=== PATIENT | female | born 1995 | race Hispanic/Latino ===

== ENCOUNTER 2018-04-27 19:12 | Emergency (ER) | payer OTHER ==
[2018-04-27] MEDS ORDERED: SULFAMETHOX-TMP DS 800/160 TAB ONE (19:54)
[2018-04-27] MEDS ORDERED: DIPHENHYDRAMINE HCL 25 MG CAPSULE ONE (19:54)
== END 2018-04-27 20:03 | disposition home or self-care (01) ==
LOC: EDH 19:12
DX: S50.862A Insect bite (nonvenomous) of left forearm, initial encounter (principal); W57.XXXA Bitten or stung by nonvenomous insect and other nonvenomous arthropods, initial encounter; Y93.89 Activity, other specified; Y92.096 Garden or yard of other non-institutional residence as the place of occurrence of the external cause; Y99.8 Other external cause status
CPT/HCPCS: 99283; Q0163

== ENCOUNTER 2019-01-01 23:36 | Emergency (ER) | payer OTHER ==
[2019-01-02] MEDS ORDERED: TETANUS/DIPHTHERIA TOXOID [ADULT] 0.5 ML VIAL IM ONE (00:16)
[2019-01-02] MEDS ORDERED: LIDOCAINE HCL 1% 20 ML VIAL ONE (00:56)
== END 2019-01-02 01:21 | disposition home or self-care (01) ==
LOC: EDH 23:36
DX: S61.412A Laceration without foreign body of left hand, initial encounter (principal); W45.8XXA Other foreign body or object entering through skin, initial encounter; Y93.G3 Activity, cooking and baking; Y92.098 Other place in other non-institutional residence as the place of occurrence of the external cause; Y99.8 Other external cause status
CPT/HCPCS: 12041; 90471; 90714

== ENCOUNTER 2019-10-03 12:47 | Emergency (ER) | payer OTHER, SELFPAY ==
[2019-10-03] MEDS ORDERED: ACETAMINOPHEN EXTRA STRENGTH 500 MG TABLET ONE (14:19)
[2019-10-03] MEDS ORDERED: ONDANSETRON HCL 4 MG/2 ML VIAL ONE (14:19)
[2019-10-03] MEDS ORDERED: SODIUM CHLORIDE 0.9% 500ML 500 ML IV ONE (14:22)
[2019-10-03 14:48] LABS: BASOPHILS % (AUTO) 0.5 % (0.0-5.0); MEAN CORPUSCULAR HEMOGLOBIN 28.7 pg (27.0-33.0); MEAN CORPUSCULAR HGB CONC 33.2 g/dL (32.0-36.0); MEAN CORPUSCULAR VOLUME 86.4 fL (79-99); MONOCYTES % (AUTO) 4.4 % (3.0-13.0); NEUTROPHILS % (AUTO) 70.3 % (40.0-77.0); PLATELET COUNT (AUTO) 135 K/uL (130-400); RED BLOOD CELL COUNT(AUTO) 4.28 MIL/uL (4.00-5.50); RED CELL DISTRIBUTION WIDTH 12.2 % (11.0-15.5); WHITE BLOOD COUNT (AUTO) 3.9 K/uL (4.8-10.8)
[2019-10-03 14:56] LABS: APPEARANCE,URINE CLOUDY (CLEAR); BILIRUBIN,URINE SMALL (NEGATIVE); COLOR,URINE YELLOW (YELLOW); GLUCOSE, URINE (UA) NEGATIVE (NEGATIVE); KETONES,URINE 15 mg/dL (NEGATIVE); LEUKOCYTE ESTERASE ,URINE SMALL (NEGATIVE); NITRATE,URINE NEGATIVE (NEGATIVE); OCCULT BLOOD,URINE NEGATIVE (NEGATIVE); PROTEIN,URINE 30 mg/dL (NEGATIVE)
[2019-10-03 15:04] LABS: PARTIAL THROMBOPLASTIN TIME 28.5 SEC (26.3-35.5); PROTHROMBIN TIME 10.8 SEC (9.6-11.6)
[2019-10-03 15:06] LABS: CARBON DIOXIDE 26 mmol/L (21-32); CHLORIDE 96 mmol/L (101-111); CREATININE 0.8 mg/dL (0.5-1.5); GLOMERULAR FILTR. RATE CALC 92 mL/min (>60); GLUCOSE,RANDOM 108 mg/dL (70-105); POTASSIUM 3.4 mmol/L (3.5-5.1); SODIUM SERUM 133 mmol/L (136-145); UREA NITROGEN, BLOOD 10 mg/dL (7-18)
[2019-10-03 15:09] LABS: RBC,URINE 0-1 /HPF (0-1)
[2019-10-03 15:10] LABS: BACTERIA,URINE Few /HPF (None Seen); MUCUS,URINE Few LPF (None Seen); SQUAMOUS EPITHELIAL CELL,UR Moderate /HPF (0-2)
[2019-10-03 15:15] LABS: ALANINE AMINOTRANSFERASE 58 U/L (12-78); ALBUMIN 3.3 g/dL (3.5-5.0); ASPARTATE AMINOTRANSFERASE 53 U/L (10-37); BILIRUBIN,TOTAL 0.4 mg/dL (0.2-1.0); CREATINE KINASE, TOTAL 61 U/L (21-232); MYOGLOBIN 26 ng/mL (10-92); TOTAL PROTEIN, SERUM 7.9 g/dL (6.0-8.3); TROPONIN I < 0.04 ng/mL (0.00-0.06)
[2019-10-03] MEDS ORDERED: IOHEXOL-350 75 ML VIAL IV ONE (17:08)
== END 2019-10-03 17:59 | disposition home or self-care (01) ==
LOC: EDH 12:47
DX: U07.1 COVID-19 (principal); M79.605 Pain in left leg; M79.604 Pain in right leg
CPT/HCPCS: 36415; 71045; 71275; 80053; 81001; 81025; 82550; 82728; 83605; 83874; 84145; 84484; 85025; 85378; 85610; 85730; 86900; 86901; 87040 ×2; 87088; 93005; 93970; 96374; 99285; J2405; J7040; Q9967

== ENCOUNTER 2021-06-21 12:24 | Emergency (ER) | payer OTHER ==
[~2021-06-21] VITALS: Ht 165.1 cm; Wt 131.5 kg
[2021-06-21 12:50] LABS: BASOPHILS % (AUTO) 0.4 % (0.0-5.0); EOSINOPHILS % (AUTO) 0.8 % (0.0-8.0); HEMATOCRIT 40.6 % (36-48); MEAN CORPUSCULAR VOLUME 83.9 fL (79-99); MONOCYTES % (AUTO) 7.5 % (3.0-13.0); PLATELET COUNT (AUTO) 316 K/uL (130-400); RED BLOOD CELL COUNT(AUTO) 4.84 MIL/uL (4.00-5.50); RED CELL DISTRIBUTION WIDTH 13.2 % (11.0-15.5); WHITE BLOOD COUNT (AUTO) 7.3 K/uL (4.8-10.8)
[2021-06-21 12:57] LABS: CREATININE 0.8 mg/dL (0.5-1.5); POTASSIUM 3.7 mmol/L (3.5-5.1)
[2021-06-21 13:05] LABS: ALBUMIN 3.5 g/dL (3.5-5.0); BILIRUBIN,TOTAL 0.1 mg/dL (0.2-1.0)
[2021-06-21] MEDS ORDERED: 0.9%NACL 1000ML 1,000 ML IV ONE ×2 (13:07→13:30)
[2021-06-21] MEDS ORDERED: ONDANSETRON 4MG INJ ONE (13:08)
[2021-06-21] MEDS ORDERED: MORPHINE 2 MG SYG ONE (13:09)
[2021-06-21 13:28] LABS: APPEARANCE,URINE Clear (CLEAR); BILIRUBIN,URINE Negative (NEGATIVE); COLOR,URINE Yellow (YELLOW); GLUCOSE, URINE (UA) Negative (NEGATIVE); KETONES,URINE Trace mg/dL (NEGATIVE); LEUKOCYTE ESTERASE ,URINE Small (NEGATIVE); NITRATE,URINE Negative (NEGATIVE); OCCULT BLOOD,URINE Negative (NEGATIVE); PH,URINE 5.5 (5.0-8.0); PROTEIN,URINE Negative (NEGATIVE)
[2021-06-21] MEDS ORDERED: ONDANSETRON 4MG INJ IVP ONE (13:30)
[2021-06-21] MEDS ORDERED: MORPHINE 2 MG SYG IVP ONE (13:30)
[2021-06-21 14:01] LABS: BACTERIA,URINE Few /HPF (None Seen); MUCUS,URINE Few LPF (None Seen); YEAST,URINE BUDDING Few /HPF (None Seen)
[2021-06-21] MEDS ORDERED: CEFTRIAXONE 1G VIAL IV ONE (14:30)
[2021-06-21] MEDS ORDERED: CEPH500B PO (14:49)
[2021-06-21] MEDS ORDERED: ONDA4TAB10 PO (14:49)
[2021-06-21 15:02] VITALS: BP 123/78
== END 2021-06-21 15:02 | disposition home or self-care (01) ==
LOC: EDH 12:24
DX: N39.0 Urinary tract infection, site not specified (principal); Z20.822 Contact with and (suspected) exposure to COVID-19; Z79.899 Other long term (current) drug therapy
CPT/HCPCS: 36415; 74176; 80053; 81001; 81025; 85025; 87635; 87804 ×2; 87880; 96361; 96374; 96375; 99284; C9803; J0696; J2405; J7030

== ENCOUNTER 2022-02-24 20:23 | Emergency (ER) | payer OTHER ==
[~2022-02-24] VITALS: Ht 165.1 cm; Wt 132.9 kg
[~2022-02-24 20:23] MED LIST: CEPH500B PO; ONDA4TAB10 PO
[2022-02-24 21:44] VITALS: BP 126/73
[2022-02-24 23:22] LABS: BASOPHILS % (AUTO) 0.2 % (0.0-5.0); EOSINOPHILS % (AUTO) 0.7 % (0.0-8.0); HEMATOCRIT 33.6 % (36-48); LYMPHOCYTES % (AUTO) 21.4 % (21.0-51.0); MEAN CORPUSCULAR HEMOGLOBIN 27.9 pg (27.0-33.0); MEAN CORPUSCULAR HGB CONC 32.4 g/dL (32.0-36.0); MEAN CORPUSCULAR VOLUME 85.9 fL (79-99); MONOCYTES % (AUTO) 9.6 % (3.0-13.0); NEUTROPHILS % (AUTO) 67.9 % (40.0-77.0); PLATELET COUNT (AUTO) 289 K/uL (130-400); RED BLOOD CELL COUNT(AUTO) 3.91 MIL/uL (4.00-5.50); RED CELL DISTRIBUTION WIDTH 13.7 % (11.0-15.5); WHITE BLOOD COUNT (AUTO) 8.8 K/uL (4.8-10.8)
[2022-02-24 23:39] LABS: ALBUMIN 3.1 g/dL (3.5-5.0); POTASSIUM 3.6 mmol/L (3.5-5.1); TOTAL PROTEIN, SERUM 7.3 g/dL (6.0-8.3)
[2022-02-24 23:54] LABS: CREATININE 0.6 mg/dL (0.5-1.5)
[2022-02-25 01:02] LABS: APPEARANCE,URINE CLEAR (CLEAR); BILIRUBIN,URINE NEGATIVE (NEGATIVE); COLOR,URINE YELLOW (YELLOW); GLUCOSE, URINE (UA) NEGATIVE (NEGATIVE); KETONES,URINE NEGATIVE (NEGATIVE); LEUKOCYTE ESTERASE ,URINE 25 Leu/uL (NEGATIVE); NITRATE,URINE NEGATIVE (NEGATIVE); OCCULT BLOOD,URINE NEGATIVE (NEGATIVE); PROTEIN,URINE 10 mg/dL (NEGATIVE); UROBILINOGEN,URINE 3 mg/dL (0.2-1.0)
[2022-02-25 01:06] LABS: BACTERIA,URINE RARE /HPF (None Seen); MUCUS,URINE RARE LPF (None Seen); SQUAMOUS EPITHELIAL CELL,UR FEW /HPF (0-2)
[2022-02-25 01:07] LABS: HCG,QUALITATIVE URINE POSITIVE (NEGATIVE)
[2022-02-25] MEDS ORDERED: ONDANSETRON 4MG INJ IVP ONE (02:00)
[2022-02-25] MEDS ORDERED: PREN-155 PO (03:57)
[2022-02-25] MEDS ORDERED: ONDA4TAB10 PO (03:57)
== END 2022-02-25 04:00 | disposition home or self-care (01) ==
LOC: EDH 20:23
DX: O26.891 Other specified pregnancy related conditions, first trimester (principal); R10.13 Epigastric pain; O21.9 Vomiting of pregnancy, unspecified; R05.9 Cough, unspecified; R50.9 Fever, unspecified; Z20.822 Contact with and (suspected) exposure to COVID-19; Z3A.01 Less than 8 weeks gestation of pregnancy
CPT/HCPCS: 99284; 87635; 80053; 84702; 85025; 83690; 87804 ×2; 81001; 81025; 36415; 96374; 76817; C9803; J2405

== ENCOUNTER 2022-05-14 21:11 | Emergency (ER) | payer BC, MEDICAID ==
[~2022-05-14] VITALS: Ht 165.1 cm; Wt 131.5 kg
[~2022-05-14 21:11] MED LIST changes: +PREN-155 PO
[2022-05-14 23:44] VITALS: BP 138/64
== END 2022-05-14 23:35 | disposition home or self-care (01) ==
LOC: EDH 21:11
DX: O26.892 Other specified pregnancy related conditions, second trimester (principal); S00.83XA Contusion of other part of head, initial encounter; R10.9 Unspecified abdominal pain; Z3A.19 19 weeks gestation of pregnancy; Z79.899 Other long term (current) drug therapy; Y04.2XXA Assault by strike against or bumped into by another person, initial encounter; Y93.89 Activity, other specified; Y92.89 Other specified places as the place of occurrence of the external cause; Y99.8 Other external cause status
CPT/HCPCS: 76805

== ENCOUNTER 2022-07-28 22:42 | Emergency (ER) | payer BC, MEDICAID ==
[~2022-07-28] VITALS: Ht 165.1 cm; Wt 135.2 kg
[2022-07-28 22:43] VITALS: BP 122/67
[2022-07-28] MEDS ORDERED: CEPH500B PO (23:14)
== END 2022-07-28 23:25 | disposition home or self-care (01) ==
LOC: EDH 22:42
DX: S61.111A Laceration without foreign body of right thumb with damage to nail, initial encounter (principal); Z79.899 Other long term (current) drug therapy; X58.XXXA Exposure to other specified factors, initial encounter; Y93.89 Activity, other specified; Y92.89 Other specified places as the place of occurrence of the external cause; Y99.8 Other external cause status

== ENCOUNTER 2022-09-19 23:57 | Observation (INO) | payer BC, MEDICAID ==
[~2022-09-19] VITALS: Ht 165.1 cm; Wt 143.8 kg
[2022-09-20] MEDS ORDERED: PREN-196 PO (00:21)
[2022-09-20] MEDS ORDERED: LACTATED RINGERS 1000ML 1,000 ML IV PRN (00:30)
[2022-09-20 00:40] LABS: APPEARANCE,URINE CLEAR (CLEAR); BILIRUBIN,URINE NEGATIVE (NEGATIVE); COLOR,URINE LIGHT-YELLOW (YELLOW); GLUCOSE, URINE (UA) NEGATIVE (NEGATIVE); KETONES,URINE NEGATIVE (NEGATIVE); LEUKOCYTE ESTERASE ,URINE 250 Leu/uL (NEGATIVE); NITRATE,URINE NEGATIVE (NEGATIVE); OCCULT BLOOD,URINE NEGATIVE (NEGATIVE); PH,URINE 6.5 (5.0-8.0); PROTEIN,URINE 10 mg/dL (NEGATIVE); UROBILINOGEN,URINE 0.2 mg/dL (0.2-1.0)
[2022-09-20 00:49] LABS: MUCUS,URINE RARE LPF (None Seen); SQUAMOUS EPITHELIAL CELL,UR FEW /HPF (0-2)
[2022-09-20 01:02] LABS: BACTERIA,URINE Few /HPF (None Seen)
[2022-09-20 01:11] LABS: HEMATOCRIT 27.7 % (36-48); MEAN CORPUSCULAR HEMOGLOBIN 28.2 pg (27.0-33.0); MEAN CORPUSCULAR HGB CONC 32.9 g/dL (32.0-36.0); MEAN CORPUSCULAR VOLUME 85.8 fL (79-99); RED BLOOD CELL COUNT(AUTO) 3.23 MIL/uL (4.00-5.50); RED CELL DISTRIBUTION WIDTH 13.9 % (11.0-15.5); WHITE BLOOD COUNT (AUTO) 7.4 K/uL (4.8-10.8)
[2022-09-20 01:21] LABS: AMPHET/METH SCREEN,URINE NEGATIVE (NEGATIVE); BARBITURATE SCREEN, URINE NEGATIVE (NEGATIVE); BENZODIAZEPINES SCREEN,URINE NEGATIVE (NEGATIVE); CANNABINOID SCREEN,URINE NEGATIVE (NEGATIVE); COCAINE SCREEN,URINE NEGATIVE (NEGATIVE); OPIATE SCREEN,URINE NEGATIVE (NEGATIVE); PHENCYCLIDINE SCREEN,URINE NEGATIVE (NEGATIVE)
[2022-09-20 03:27] VITALS: BP 121/61
[2022-09-22 11:37] LABS: RAPID PLASMA REAGIN NONREACTIVE (NONREACTIVE)
[2022-09-25] MEDS ORDERED: IBUP-2088 PO (11:10)
[2022-09-25] MEDS ORDERED: FERS325 PO (11:12)
== END 2022-09-20 09:30 | disposition home or self-care (01) ==
LOC: EDH 23:57 → LDH 23:58
PROVIDERS: ADMIT Obstetrics & Gynecology; ATTEND Obstetrics & Gynecology
DX: O26.893 Other specified pregnancy related conditions, third trimester (principal); R10.9 Unspecified abdominal pain; O99.891 Other specified diseases and conditions complicating pregnancy; M54.9 Dorsalgia, unspecified; O24.419 Gestational diabetes mellitus in pregnancy, unspecified control; Z3A.36 36 weeks gestation of pregnancy; W19.XXXA Unspecified fall, initial encounter; Y93.89 Activity, other specified; Y92.89 Other specified places as the place of occurrence of the external cause; Y99.8 Other external cause status
CPT/HCPCS: 96361 ×2; 96360; 80305; 85027; 86592; 86850; 86900; 86901; 87088; 87340; 86870; 86701; 87390; 81001; 36415; 76819; 76805; G0378 ×9; J7120

== ENCOUNTER 2023-11-28 04:14 | Emergency (ER) | payer BC, MEDICAID ==
[~2023-11-28] VITALS: Ht 165.1 cm; Wt 133.8 kg
[~2023-11-28 04:14] MED LIST changes: -CEPH500B PO; +FERS325 PO; +IBUP-2088 PO; -ONDA4TAB10 PO; -PREN-155 PO; +PREN-196 PO
[2023-11-28 04:34] LABS: APPEARANCE,URINE CLOUDY (CLEAR); BILIRUBIN,URINE NEGATIVE (NEGATIVE); COLOR,URINE LIGHT-YELLOW (YELLOW); GLUCOSE, URINE (UA) NEGATIVE (NEGATIVE); KETONES,URINE NEGATIVE (NEGATIVE); LEUKOCYTE ESTERASE ,URINE 500 Leu/uL (NEGATIVE); NITRATE,URINE NEGATIVE (NEGATIVE); OCCULT BLOOD,URINE NEGATIVE (NEGATIVE); PH,URINE 5.5 (5.0-8.0); PROTEIN,URINE NEGATIVE (NEGATIVE); UROBILINOGEN,URINE 0.2 mg/dL (0.2-1.0)
[2023-11-28 04:35] LABS: ADD UA MICROSCOPIC YES
[2023-11-28 04:41] LABS: RAPID GROUP A STREP negative (NEGATIVE)
[2023-11-28 04:48] LABS: SARS-CoV-2, RNA, NAAT NEGATIVE SARS CoV-2 (NEGATIVE)
[2023-11-28 04:51] LABS: INFLUENZA TYPE A Negative For Type A (NEGATIVE); INFLUENZA TYPE B Negative For Type B (NEGATIVE)
[2023-11-28 05:15] LABS: BACTERIA,URINE Rare /HPF (None Seen); HCG,QUALITATIVE URINE NEGATIVE (NEGATIVE); RBC,URINE 0-1 /HPF (0-1); SQUAMOUS EPITHELIAL CELL,UR Few /HPF (0-2)
[2023-11-28 07:17] LABS: HEMATOCRIT 36.7 % (36-48); MEAN CORPUSCULAR HEMOGLOBIN 25.2 pg (27.0-33.0); MEAN CORPUSCULAR HGB CONC 30.5 g/dL (32.0-36.0); MEAN CORPUSCULAR VOLUME 82.7 fL (79-99); PLATELET COUNT (AUTO) 381 K/uL (130-400); RED BLOOD CELL COUNT(AUTO) 4.44 MIL/uL (4.00-5.50); RED CELL DISTRIBUTION WIDTH 14.5 % (11.0-15.5)
[2023-11-28 07:56] LABS: ALBUMIN 3.4 g/dL (3.5-5.0); BILIRUBIN,TOTAL 0.2 mg/dL (0.2-1.0); CREATININE 0.8 mg/dL (0.5-1.0); POTASSIUM 3.5 mmol/L (3.5-5.1); TOTAL PROTEIN, SERUM 8.1 g/dL (6.0-8.3)
[2023-11-28] MEDS: CLINDAMYCIN IVPB 300MG/50ML 50 ML IV SCH (08:12)
[2023-11-28 08:31] LABS: BAND NEUTROPHILS % (MANUAL) 1 % (0-2); EOSINOPHILS % (MANUAL) 3 % (1-6); LYMPHOCYTES % (MANUAL) 37 % (22-44); MAN.DIFF COMMENT-IMPRESSION MANUAL DIFFERENTIAL; MONOCYTES % (MANUAL) 9 % (2-9); SEGMENTED NEUTROPHILS % 50 % (40-70); TOTAL CELLS COUNTED 100
[2023-11-28 08:32] LABS: PLATELET MORPHOLOGY COMMENT ADEQUATE
[2023-11-28] MEDS ORDERED: SULF1TAB42 PO (09:20)
[2023-11-28 09:37] VITALS: BP 123/58; PULSE 74; RESP 16; TEMP 97.8; O2SAT 100
== END 2023-11-28 09:49 | disposition home or self-care (01) ==
LOC: EDH 04:14
DX: A31.1 Cutaneous mycobacterial infection (principal); B65.3 Cercarial dermatitis; R09.1 Pleurisy; Z20.822 Contact with and (suspected) exposure to COVID-19; Z86.16 Personal history of COVID-19
CPT/HCPCS: 99284; 96365; 71045; 87635; 80053; 85025; 87086; 87880; 87804 ×2; 81001; 81025; 36415; J3490